=== PATIENT | male | born 1965 | race African-American/Black ===

== ENCOUNTER 2017-03-14 12:32 | Day surgery (SDC) | payer OTHER ==
[2017-03-14] MEDS ORDERED: LACTATED RINGERS 1,000 ML IV ONE (13:15)
[2017-03-14] MEDS ORDERED: MIDAZOLAM 2 MG/2 ML VIAL IVP ONE (13:48)
[2017-03-14] MEDS ORDERED: fentaNYL 100 MCG/2 ML VIAL IVP ONE (13:48)
[2017-03-14 14:35] VITALS: BP 92/48
== END 2017-03-14 12:33 | disposition home or self-care (01) ==
LOC: SDS 12:32
PROVIDERS: ATTEND Surgery
PROC: 0DJD8ZZ Inspection of Lower Intestinal Tract, Via Natural or Artificial Opening Endoscopic (ICD-10-PCS; principal; 2017-03-14 13:45)
DX: Z12.11 Encounter for screening for malignant neoplasm of colon (principal)
CPT/HCPCS: 45378; J7120